=== PATIENT | male | born 1955 | race Caucasian/White ===

== ENCOUNTER 2018-06-01 10:54 | Day surgery (SDC) | payer MEDICARE, OTHER ==
[~2018-06-01] VITALS: Ht 185.4 cm; Wt 85.6 kg
[~2018-06-01 10:54] MED LIST: ASPI81CH PO; Cialis5 MG; HYDR1TAB94; IBUP600; LISI20; MULVIT; NAPR220; TADA10TA; ZESTORETIC 20-1 EACH PO
--- NOTE | 2018-06-01 13:03 | NUR ---
06/01/18 1303 Jahaira Collins PT IS DRESSING, WILL BE HERE SHORTLY TO GO OVER DISCHARGE INSTRUCTION.
== END 2018-06-01 13:20 | disposition home or self-care (01) ==
LOC: ORSCSDS 10:54
PROVIDERS: Podiatrist Foot & Ankle Surgery
PROC: 0JNQ0ZZ Release Right Foot Subcutaneous Tissue and Fascia, Open Approach (ICD-10-PCS; principal; 2018-06-01 13:15)
DX: M72.2 Plantar fascial fibromatosis (principal); I10 Essential (primary) hypertension; M06.9 Rheumatoid arthritis, unspecified; Z79.899 Other long term (current) drug therapy; Z87.891 Personal history of nicotine dependence
CPT/HCPCS: J0690; J1100; J2250; J2405; J2704; J3010; J7120